=== PATIENT | male | born 1985 | race Caucasian/White ===

== ENCOUNTER 2025-01-06 22:22 | Emergency (ER) | payer SELFPAY ==
[2025-01-06 22:28] VITALS: BP 138/75; PULSE 79; O2SAT 96
[2025-01-06 22:32] VITALS: BP 138/75; PULSE 77; RESP 18; TEMP 37.1; O2SAT 95; BMI 28.8
--- NOTE | 2025-01-07 00:46 | ED.RECABL ---
HPI - Recheck/Abnormal Lab/Rx General Chief Complaint: Recheck/Abnormal Lab/Rx Stated Complaint: thromboses hemmorrhoid still bleeding x3 weeks Time Seen by Provider: 01/06/25 22:33 Source: patient Mode of arrival: Ambulatory History of Present Illness HPI narrative: 39-year-old male with a history of a thrombosed hemorrhoid that was diagnosed in a different ED approximately 3 weeks ago presents with continual bleeding. Patient does admit that the hemorrhoid has subsided in size a little bit but wanted it double checked. Related Data Allergies Allergy/AdvReac Type Severity Reaction Status Date / Time No Known Drug Allergies Allergy Verified 01/06/25 22:32 Review of Systems Review of Systems ROS Unobtainable: All systems reviewed & are unremarkable except as noted in HPI and below Patient History Social History Smoking Status: Current some day smoker Smoking Status: Current some day smoker tobacco type: cigarettes Exam Narrative Exam Narrative: General: Patient appears to be in no acute distress, acting appropriately Head: normocephalic, atraumatic, HEENT: Pupils equal round reactive, eyes tracking well, neck supple, no JVD Heart: regular rate and rhythm, no murmurs, rubs, or gallops heard Lungs: clear to auscultation, no adventitious sounds Abdomen: soft , nontender, nondistended, positive bowel sounds Neurological: no focal neurological signs, moving all extremities well, alert and oriented x3, Psych: good judgment ,good insight, mood is normal. Rectum; showed a thrombosed hemorrhoid externally, no fissure or fistula seen. Initial Vital Signs Initial Vital Signs: Vital Signs Pulse Rate 79 01/06/25 22:28 Blood Pressure 138/75 01/06/25 22:28 Pulse Oximetry 96 01/06/25 22:28 Course Vital Signs Vital signs: Vital Signs - 8 hr 01/06/25 22:28 01/06/25 22:28 01/06/25 22:32 Temperature 98.7 F Pulse Rate 79 77 Respiratory Rate 18 Blood Pressure 138/75 138/75 Pulse Oximetry 96 95 Oxygen Delivery Method Room Air 01/07/25 00:54 Temperature Pulse Rate 72 Respiratory Rate Blood Pressure 123/68 Pulse Oximetry 96 Oxygen Delivery Method MDM - Recheck/Abnormal Lab/Rx Differential Diagnosis Differential diagnosis: Likely other (hemorrrhoid vs fistula vs fissure ) MDM Narrative Medical decision making narrative: 39-year-old male with an obvious external thrombosed hemorrhoid given general surgery information to follow up. Patient advised to continue with Sitz baths and to use laxatives as needed. Follow up if hemorrhoid worsening. Discharge Plan Departure Patient Disposition: Home Clinical Impression: Hemorrhoid thrombosis Instructions: DI for Hemorrhoids Activity Restrictions/Additional Instructions: Continue using laxatives as needed and continue with Sitz baths daily at least 3 to 4 times a day. General surgery information given please follow up with General surgery as an outpatient. Referrals: Senia Herring ARNP [Primary Care Provider, Nursing] Liam Lim MD [Physician, General Surgery] Stand Alone Forms: Patient Portal/API
[2025-01-07 00:54] VITALS: BP 123/68; PULSE 72; O2SAT 96
== END 2025-01-07 01:06 | disposition home or self-care (01) ==
PROVIDERS: Emergency Provider Family Medicine; PCP Nurse Practitioner Family
DX: K64.5 Perianal venous thrombosis (principal); F17.210 Nicotine dependence, cigarettes, uncomplicated
CPT/HCPCS: 99281